=== PATIENT | female | born 1955 | race Caucasian/White ===

== ENCOUNTER 2016-05-13 08:35 | Day surgery (SDC) | payer BC ==
[2016-05-10 17:14] VITALS: BMI 39.8
[2016-05-13] MEDS ORDERED: oxyCODONE HCL 10 MG SUSTAINED ACTING TABLET PO STA (09:38)
[2016-05-13] MEDS ORDERED: PROPOFOL 20 ML ONE ×7 (10:18→13:19)
[2016-05-13] MEDS ORDERED: SUCCINYLCHOLINE CHLORIDE 200 MG/10 ML VIAL ONE (10:21)
[2016-05-13] MEDS ORDERED: ROCURONIUM BROMIDE 50 MG/5 ML VIAL ONE (10:21)
[2016-05-13] MEDS ORDERED: MIDAZOLAM HCL 2 MG/2 ML SINGLE DOSE VIAL ONE (10:22)
[2016-05-13] MEDS ORDERED: LIDOCAINE 1%-EPI 1:100,000 30 ML MDV IJ ONE (10:44)
--- NOTE | 2016-05-13 10:55 | HP ---
History & Physical Update - History History: No Change - Physical Physical: No Change - Assessment Assessment: No Change - Plan Plan: No Change
[2016-05-13] MEDS ORDERED: LIDOCAINE 1%/EPI 1:100000 (50 ML MULTI DOSE VIAL) INF ONE (12:02)
[2016-05-13] MEDS ORDERED: DEXAMETHASONE SOD PHOSPHATE 4 MG/1 ML VIAL ONE (12:22)
[2016-05-13] MEDS ORDERED: ONDANSETRON 4 MG/2 ML VIAL ONE (12:22)
[2016-05-13] MEDS ORDERED: HYDROmorphone HCL/PF 1 MG/ML VIAL (FOR PYXIS CHARGING ONLY) ONE (12:44)
[2016-05-13] MEDS ORDERED: PROMETHAZINE HCL 25 MG/1 ML VIAL IVPUSH PRN (12:47)
[2016-05-13] MEDS ORDERED: LACTATED RINGERS SOLUTION 1,000 ML IV SCH ×2 (13:00→14:30)
[2016-05-13] MEDS ORDERED: ONDANSETRON 4 MG/2 ML VIAL IVPUSH PRN (13:11)
[2016-05-13] MEDS ORDERED: NEOSTIGMINE METHYLSULFATE 0.5 MG/ML - 10 ML MDV ONE (13:37)
[2016-05-13] MEDS ORDERED: oxyCODONE HCL 5 MG TABLET PO PRN ×2 (14:19)
[2016-05-13] MEDS ORDERED: morphine CARPU-JECT 4 MG/1 ML DISP.SYRIN IVPUSH PRN (14:19)
[2016-05-13] MEDS ORDERED: ACETAMINOPHEN 1000 MG/100 ML VIAL (NON FORMULARY) IVPB ONE (14:21)
--- NOTE | 2016-05-13 14:26 | OP ---
Operative Note - Note: Operative Date: 05/13/16 Pre-Operative Diagnosis: Cervical stenosis, radiculopathy Operation: Anterior cervical discectomy with fusion C5-C6, C6-C7 Post-Operative Diagnosis: Same as Pre-op Surgeon: Simon Moreira Separator Inserter: Ameya Godinez Anesthesiologist/TREE SCOUT: Giles Ryan Anesthesia: General Specimens Removed: Discs: C5-C6, C6-C7 Estimated Blood Loss (mls): 20 Fluid Volume Replaced (mls): 1,000
--- NOTE | 2016-05-13 14:27 | SURG ---
Surgery [employer] Developer Note [employer] Developer: Ameya Godinez PA-C Date of Service: 05/13/16 Diagnosis: Cervical stenosis, radiculopathy Procedure: Anterior cervical discectomy with fusion C5-C6, C6-C7 I was present for the entirety of the operative procedure. For further detail, please refer to operative report. Visit type - Case Type Case Type: Scheduled Admission - New patient This patient is new to me today: Yes Date on this admission: 05/13/16
[2016-05-13] MEDS ORDERED: diazePAM 5 MG TABLET PO PRN (14:28)
[2016-05-13] MEDS: HYDROmorphone HCL CARPU-JECT 1 MG/1 ML DISP.SYRIN IVPUSH PRN ×2 (14:28→14:45)
[2016-05-13] MEDS ORDERED: ONDANSETRON 4 MG/2 ML VIAL IVPB PRN (14:30)
[2016-05-13] MEDS: KETOROLAC TROMETHAMINE 30 MG/1 ML VIAL IVPUSH PRN (14:30)
[2016-05-13] MEDS ORDERED: HYDROmorphone HCL CARPU-JECT 1 MG/1 ML DISP.SYRIN ONE (14:34)
[2016-05-13] MEDS ORDERED: KETOROLAC TROMETHAMINE 30 MG/1 ML VIAL ONE (14:34)
--- NOTE | 2016-05-13 17:39 | OP ---
DATE OF OPERATION: 05/13/2016 PREOPERATIVE DIAGNOSIS: Cervical herniated disk, C5-6, C6-7. POSTOPERATIVE DIAGNOSIS: Cervical herniated disk, C5-6, C6-7. PROCEDURE PERFORMED: 1. Anterior cervical diskectomy at C5-6. 2. Anterior cervical diskectomy C6-7. 3. Anterior cervical fusion C5-C7. 4. Placement of instrumentation. 5. Placement of prosthetic cages. SURGEON: Simon Moreira M.D. COUNSELING DIRECTOR: Joan Gonsales ESTIMATED BLOOD LOSS: 50 mL. INTRAVENOUS FLUIDS: Per anesthesia. COMPLICATIONS: There were none. DISPOSITION: Patient brought to the PACU in stable condition. INDICATION FOR SURGERY: The patient is a 61-year-old female who has been suffering from pain from her neck and her arms. X-rays, MRI were completed which noted that she had herniated disk at C5-6 and C6-7. She had gone through an exhaustive course of treatment for this which included medications, physical therapy, as well as injections. Unfortunately, her pain continued to persist in spite of all this. At this point, risks, benefits, and alternatives were discussed and the patient consented to surgery. OPERATIVE NOTE: Patient is brought to the operating room by anesthesia staff. After appropriate patient identification is performed, general anesthesia was administered. Appropriate anesthetic lines were placed. Neural monitors were attached. A needle was taped onto her neck to kirsten off the C5-6 level, and x-rays was taken to confirm this is correct. Nelson were removed, and 10 mL of lidocaine with epinephrine was injected into her neck at this time. Her neck was prepped and draped in a sterile manner. At this point timeout was completed. A 2-inch incision was made on the left side of her neck. Dissection was carried down to the platysma. The platysma was cut in line of the skin incision. Next the interval between the sternocleidomastoid muscle as well as strap muscles were developed. Next the interval between the carotid sheath as well as trachea esophagus was developed. Peanuts were used to elevated off the peritoneal fascia. A needle was placed into the C5-6 disk. An x-ray was taken to confirm this was correct. At this point, the needle was removed, and the microscope was brought in. The longus colli muscles were elevated off and retractor blades placed in. The Tioga pin was placed in the body of C5 and placed in the body of C7. A knife was used to cut the disk and traction was applied. At this point a Vazquez was used to elevate the disks off the endplate. Using a series of pituitaries, Kerrisons and curets a diskectomy was completed. The end plate were decorticated at this time. Cages filled with bone graft were placed into both levels. Tioga pins were removed. A screw is placed into the body of C5. A screw was placed into the body of C6. A screw was placed into the body of C7. AP and lateral x-rays confirmed the instrumentation being in good position. Final tightening was performed. A JAME drain was placed. The platysma was closed with 2-0 Vicryl suture. Skin was closed with 3-0 Monocryl suture. Dermabond was applied. Steri-Strips were applied. Sterile dressing was applied. Patient was placed supine on OR bed, extubated in the OR, and brought to the PACU in stable condition. Maxim REYNA/[id number] MTDD
[2016-05-13] MEDS: CEFAZOLIN 1 GM/D5W 50 ML IVPB SCH (17:46)
[2016-05-13] MEDS: oxyCODONE HCL 5 MG TABLET PO PRN (20:23)
[2016-05-13] MEDS ORDERED: ATORVASTATIN CA 20 MG TABLET (FP) PO SCH (22:00)
[2016-05-13] MEDS ORDERED: GABAPENTIN PO SCH (22:00)
[2016-05-14] MEDS: CEFAZOLIN 1 GM/D5W 50 ML IVPB SCH (02:00)
[2016-05-14] MEDS: oxyCODONE HCL 5 MG TABLET PO PRN (03:30)
[2016-05-14] MEDS: KETOROLAC TROMETHAMINE 30 MG/1 ML VIAL IVPUSH PRN (07:37)
[2016-05-14 09:02] VITALS: BP 132/68; PULSE 65; TEMP 97.9
--- NOTE | 2016-05-14 09:35 | DS ---
[id number]. She states the symptoms she experienced prior to surgery, pain, numbness and weakness in her right arm, have improved. She is tolerating her diet, ambulating, and voiding without issue. She denies fever, chills, nausea, vomiting, CP, SOB, numbness or tingling. OBJECTIVE: Vital Signs Temperature 97.9 F 05/14/16 09:01 Pulse Rate 65 05/14/16 09:01 Respiratory Rate 18 05/14/16 09:01 Blood Pressure 132/68 05/14/16 09:01 O2 Sat by Pulse Oximetry (%) 97 05/14/16 09:00 PHYSICAL EXAM GENERAL: The patient is awake, alert, and fully oriented, in no acute distress. HEAD: Normal with no signs of trauma. EYES: PERRL, extraocular movements intact, sclera anicteric, conjunctiva clear. ENT: Ears normal, nares patent, moist mucous membranes. NECK: Trachea midline, supple. Drain removed without issue, minimal serosanguineous drainage noted in bulb. Incision clean, dry, intact with steri- strips in place without evidence of hematoma. LUNGS: Breath sounds equal, clear to auscultation bilaterally, no wheezes, no crackles, no accessory muscle use. HEART: Regular rate and rhythm, S1, S2 without murmur, rub or gallop. ABDOMEN: Soft, nontender, nondistended, normoactive bowel sounds, no guarding. EXTREMITIES: 2+ pulses, warm, well-perfused, no edema. NEUROLOGICAL: Cranial nerves II through XII grossly intact. Normal speech. UE motor strength and sensation intact and equal bilat. Patient ambulating without issue in room to bathroom. PSYCH: Normal mood, normal affect. SKIN: Warm, dry, normal turgor, no rashes or lesions noted. LABS CBC,CMP POC Glucometer 197 UNITS (()) 05/13/16 14:21 HOSPITAL COURSE: Date of Admission:05/13/16 Date of Discharge: 05/14/16 The patient was admitted to the Med-Surg Unit after an elective repair of their cervical herniated disk, stenosis, radiculopathy. Now, s/p Anterior cervical discectomy with fusion C5-C6, C6-C7. The day of surgery, the patient ambulated the hallways with assistance. Narcotic and non-narcotic pain management control was achieved with an oral and IV approach. POD #1, the surgical drain was removed fully intact and without incident. An xray was obtained and confirmed hardware placement, no fractures or dislocations. Marita-operative IV ABX were administered. DVT prophylaxis was achieved with SCDs and early ambulation. The patient ambulated with Physical Therapy and no services were recommended upon discharge. Narcotic scripts were escribed. The discharge instructions and an oral pain management plan were reviewed with the patient. All questions answered. It was felt the patient was ready for discharge with instructions to followup with Dr. Moreira. Minutes to complete discharge: 30 <ArgeliaJosephAshely - Last Filed: 05/14/16 09:58> Physical Exam: SUBJECTIVE: Patient seen and examined OBJECTIVE: Vital Signs Temperature 97.9 F 05/14/16 09:01 Pulse Rate 65 05/14/16 09:01 Respiratory Rate 18 05/14/16 09:01 Blood Pressure 132/68 05/14/16 09:01 O2 Sat by Pulse Oximetry (%) 97 05/14/16 09:00 PHYSICAL EXAM GENERAL: The patient is awake, alert, and fully oriented, in no acute distress. HEAD: Normal with no signs of trauma. EYES: PERRL, extraocular movements intact, sclera anicteric, conjunctiva clear. ENT: Ears normal, nares patent, oropharynx clear without exudates, moist mucous membranes. NECK: Trachea midline, full range of motion, supple. LUNGS: Breath sounds equal, clear to auscultation bilaterally, no wheezes, no crackles, no accessory muscle use. HEART: Regular rate and rhythm, S1, S2 without murmur, rub or gallop. ABDOMEN: Soft, nontender, nondistended, normoactive bowel sounds, no guarding, no rebound, no hepatosplenomegaly, no masses. EXTREMITIES: 2+ pulses, warm, well-perfused, no edema. NEUROLOGICAL: Cranial nerves II through XII grossly intact. Normal speech, gait not observed. PSYCH: Normal mood, normal affect. SKIN: Warm, dry, normal turgor, no rashes or lesions noted. LABS CBC,CMP POC Glucometer 197 UNITS (()) 05/13/16 14:21 HOSPITAL COURSE: Date of Admission:05/13/16 Date of Discharge: 05/17/16 The patient was admitted to the Med-Surg Unit after an elective repair of their (problem). Now, s/p ( ACDF ). The day of surgery, the patient ambulated the hallways with assistance. Narcotic and non-narcotic pain management control was achieved with an oral and IV approach. POD #1, the surgical drain was removed fully intact and without incident. An xray was obtained and confirmed hardware placement at (C5-6, C6-7 ), no fractures or dislocations. Marita-operative IV ABX were administered. DVT prophylaxis was achieved with SCDs and early ambulation. The patient ambulated with Physical Therapy and no services were recommended upon discharge. Narcotic scripts and or muscle relaxants were checked with [place] [employer] prior to escibe. The discharge instructions and an oral pain management plan were reviewed with the patient. All questions answered. Above plan discussed with Dr. Moreira and agreed. Patient seen and examined Agree with Above OOB D/C Planning <Simon Moreira - Last Filed: 05/17/16 10:39> Visit type - Case Type Case Type: Scheduled Admission - New patient This patient is new to me today: Yes Date on this admission: 05/14/16 <Ashely Stout - Last Filed: 05/14/16 09:58>
[2016-05-14] MEDS ORDERED: DULoxetine HCL 30 MG CAPSULE.DR (FP) PO SCH (10:00)
[2016-05-14] MEDS ORDERED: LOSARTAN POTASSIUM 50 MG TABLET (FP) PO SCH (10:00)
--- NOTE | 2016-05-19 13:39 | PATH ---
Surgical Pathology Report Patient Name: NICK ALEXIS [facility]. Rec. #: [id number] /Age/Gender: 1955 (Age: 61) / F Account: [id number] Location: [facility] Taken: 05/13/2016 Received: 05/13/2016 Reported: 05/19/2016 Physicians: Simon Moreira M.D. Specimen(s) Received DISC C6-7 Clinical History Cervical stenosis Final Diagnosis DISC C6-7, DISCECTOMY: CARTILAGE WITH DEGENERATIVE CHANGES. Electronically Signed Adela Rivers M.D. Gross Description Received in formalin, labeled "C6-7 disc," is a 3.0 x 2.5 x 0.4 cm aggregate of edmonds fragments of fibrocartilaginous tissue. A employment representative portion is submitted in one cassette. 05/14/201605/14/2016
== END 2016-05-14 11:21 | disposition home or self-care (01) ==
LOC: FASU 08:35 → FM/S 17:18 → FASU 05-14 11:21
PROVIDERS: ATTEND Orthopaedic Surgery Orthopaedic Surgery of the Spine
PROC: 0RG20A0 Fusion of 2 or more Cervical Vertebral Joints with Interbody Fusion Device, Anterior Approach, Anterior Column, Open Approach (ICD-10-PCS; principal; 2016-05-13 12:09)
DX: M50.222 Other cervical disc displacement at C5-C6 level (principal); M50.223 Other cervical disc displacement at C6-C7 level
CPT/HCPCS: 72050-TC; 76000-TC; 88304-TC; 94760; 97116-GP; 97161-GP